=== PATIENT | female | born 1965 | race Caucasian/White ===

== ENCOUNTER 2022-02-28 06:29 | Day surgery (SDC) | payer MEDICAID ==
[~2022-02-28] VITALS: Ht 165.1 cm; Wt 49.4 kg
[~2022-02-28 06:29] MED LIST: FURO40TA5 PO; HYDR-4009 PO; LACT10SO3 MT; LACTATED RINGERS 1,000 ML IV SCH; PANT40TA51 PO; POTA20LI52 PO; SUCR1TAB PO
[2022-02-28 07:19] LABS: CLARITY URINE CLEAR (CLEAR); COLOR URINE DARK YELLOW (YELLOW); KETONES URINE 1+ (NEGATIVE); LEUKOCYTE ESTERASE URINE TRACE (NEGATIVE); NITRITE URINE NEGATIVE (NEGATIVE); OCCULT BLOOD URINE NEGATIVE (NEGATIVE); PH URINE 8.5 (4.5-8.0); PROTEIN URINE 1+ (NEGATIVE); SPECIFIC GRAVITY URINE 1.021 (1.005-1.030)
[2022-02-28] MEDS ORDERED: SKIN ADHESIVE 0.7 GM EA TOP ONE (08:49)
[2022-02-28] MEDS ORDERED: MIDAZOLAM HCL 2 MG/2 ML VIAL ONE (09:03)
[2022-02-28] MEDS ORDERED: PROPOFOL 200MG/20ML VIAL IV ONE (09:03)
[2022-02-28] MEDS ORDERED: FENTANYL CITRATE/PF 50MCG/ML 2ML VIAL ONE ×2 (09:03→09:31)
[2022-02-28] MEDS ORDERED: BUPIVACAINE HCL 0.5% (5MG/ML) 50ML ONE (09:30)
[2022-02-28] MEDS ORDERED: CEFAZOLIN SODIUM 1000MG/VIAL ONE ×2 (09:32)
[2022-02-28] MEDS ORDERED: ONDANSETRON HCL 4MG/2ML INJ ONE (10:18)
[2022-02-28] MEDS ORDERED: KETOROLAC 30MG/ML VIAL ONE (10:28)
== END 2022-02-28 14:50 | disposition home or self-care (01) ==
LOC: OR 06:29
PROVIDERS: ATTEND Surgery
DX: K40.20 Bilateral inguinal hernia, without obstruction or gangrene, not specified as recurrent (principal); N99.53 Complication of continent stoma of urinary tract; D64.9 Anemia, unspecified; F41.9 Anxiety disorder, unspecified; F32.9 Major depressive disorder, single episode, unspecified; Z87.440 Personal history of urinary (tract) infections; Z79.899 Other long term (current) drug therapy; Z98.890 Other specified postprocedural states; Z88.0 Allergy status to penicillin; Z20.822 Contact with and (suspected) exposure to COVID-19
CPT/HCPCS: 36415; 49505; 81003; 84132; 87426; 88302; C1781; C9803; J0690; J1885; J2250; J2405; J2704; J3010; J3490; J7120